=== PATIENT | female | born 1990 | race Caucasian/White ===

== ENCOUNTER 2022-10-22 13:06 | Outpatient (REF) | payer OTHER, SELFPAY ==
--- NOTE | ~2022-10-22 | MR_ITS ---
EXAMINATION: MR BRAIN WITHOUT AND WITH CONTRAST CLINICAL INFORMATION: Left optic neuritis. Rule out multiple sclerosis. COMPARISON: None TECHNIQUE: Multiplanar, multisequence MRI of the brain was obtained before and after the intravenous administration of 10 mL Gadavist. Demyelinating protocol series are obtained including sagittal thin section FLAIR images. FINDINGS: No intracranial hemorrhage, tumors or acute infarcts are noted. The ventricles and sulci are normal in size and configuration. No focal parenchymal lesions of the brain or abnormal extra-axial fluid collections are noted. Normal flow-related signal intensity is visualized in the major intracranial vessels and dural sinuses. The orbits and globes are normal in appearance making allowances for expected motion artifact. No significant mucosal thickening or retained secretions noted within the paranasal sinuses, mastoid air cells and middle ear cavities. The craniocervical junction cerebellar tonsils are normal in appearance. No marrow abnormalities are identified. No abnormal enhancement the brain is visualized. MR/MR head/brain wo/w con IMPRESSION: Normal unenhanced and IV contrast enhanced demyelinating protocol MRI of the brain. No evidence of demyelinating disease.
== END 2022-10-22 13:07 | disposition home or self-care (01) ==
LOC: HO.MRI 13:06
PROVIDERS: PCP Family Medicine; Visit Provider Psychiatry & Neurology Neurology
DX: H46.9 Unspecified optic neuritis (principal)
CPT/HCPCS: 70553; A9585